=== PATIENT | female | born 1965 | race Caucasian/White ===

== ENCOUNTER 2016-08-14 13:56 | Emergency (ER) | payer OTHER ==
[2016-08-14 14:08] VITALS: BP 129/81
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
== END 2016-08-14 14:52 | disposition home or self-care (01) ==
LOC: ED 13:56
DX: S06.0X0A Concussion without loss of consciousness, initial encounter (principal); X58.XXXA Exposure to other specified factors, initial encounter; Y92.813 Airplane as the place of occurrence of the external cause; Y99.0 Civilian activity done for income or pay; S16.1XXA Strain of muscle, fascia and tendon at neck level, initial encounter; R03.0 Elevated blood-pressure reading, without diagnosis of hypertension
CPT/HCPCS: 99283

== ENCOUNTER 2017-06-23 08:00 | Outpatient (CLI) | payer BC | END 2017-06-23 08:01 | disposition home or self-care (01) | LOC: RT 08:00 | PROVIDERS: ATTEND Naturopath | DX: R00.2 Palpitations (principal) | CPT/HCPCS: 93005 ==

== ENCOUNTER 2017-06-30 13:00 | Outpatient (CLI) | payer BC | END 2017-06-30 13:01 | disposition home or self-care (01) | LOC: DI 13:00 | PROVIDERS: ATTEND Naturopath | DX: I49.1 Atrial premature depolarization (principal) | CPT/HCPCS: 93306 ==

== ENCOUNTER 2017-07-04 22:05 | Outpatient (CLI) | payer BC | END 2017-07-04 22:06 | disposition home or self-care (01) | LOC: DI 22:05 | PROVIDERS: ATTEND Naturopath | DX: L49 Exfoliation due to erythematous conditions according to extent of body surface involved (principal); R68.0 Hypothermia, not associated with low environmental temperature; R53.83 Other fatigue; R00.2 Palpitations | CPT/HCPCS: 87040 ==

== ENCOUNTER 2017-11-01 09:30 | Outpatient (CLI) | payer OTHER, BC ==
[2017-11-01 10:46] LABS: THYROID STIMULATING HORMONE 6.72 uIU/mL (0.34-5.60)
[2017-11-01 10:48] LABS: FREE T4 (FREE THYROXINE) 0.63 ng/dL (0.58-1.64)
== END 2017-11-01 09:31 | disposition home or self-care (01) ==
LOC: LAB 09:30
PROVIDERS: ATTEND Internal Medicine Endocrinology, Diabetes & Metabolism
DX: S06.9X0S Unspecified intracranial injury without loss of consciousness, sequela (principal)
CPT/HCPCS: 36415; 81599; 84305; 84439; 84443

== ENCOUNTER 2017-11-02 09:29 | Outpatient (CLI) | payer OTHER, BC | END 2017-11-02 09:30 | disposition home or self-care (01) | LOC: LAB 09:29 | PROVIDERS: ATTEND Internal Medicine Endocrinology, Diabetes & Metabolism | DX: R63.1 Polydipsia (principal) | CPT/HCPCS: 36415; 83930; 83935; 84295 ==

== ENCOUNTER 2017-11-10 08:00 | Outpatient (CLI) | payer BC | END 2017-11-10 08:01 | disposition home or self-care (01) | LOC: LAB.R 08:00 | PROVIDERS: ATTEND Internal Medicine Endocrinology, Diabetes & Metabolism | DX: R63.1 Polydipsia (principal) | CPT/HCPCS: 81599; 83930; 83935; 84295; 84588 ==